=== PATIENT | male | born 1965 | race Caucasian/White ===

== ENCOUNTER 2021-11-16 22:40 | Inpatient (IN) | payer MEDICARE, SELFPAY ==
[2021-11-16 22:40] VITALS: TEMP 36.6; O2SAT 96
[2021-11-16 23:00] VITALS: O2SAT 96
--- NOTE | 2021-11-16 23:12 | W.PM.HP.N ---
Date of service: 11/16/21 Time of Service: 23:12 Assessment and Plan Assessment and plan (1) Asthma: Status: Chronic Assessment and plan: Asthma exacerbation. Unclear precipitant but non-specific infectious etiology favored at this time. By CXR (report) there does not seem to be pneumonia but will repeat film in AM (at present I am unable to open the disc sent from [facility], but report is negative). There is some concern for possible emerging sepsis picture as manifested by transient low BP and marginal elevation of lactate but at present hemodynamics stable and patient appears entirely non-toxic. Probably best to continue Abx for now but is covered for next 24 hours. Otherwise will continue steroids and updrafts. The marginal trop is noted, doubtful significance, or at most demand ischemia. Will trend out. 1. Asthma: steroids, updrafts, consider continuing abx, repeat CXR in AM 2. Elevated trop, probable demand ischemia: trend 3. CAD: continue ASA, statin, beta jane Reviewed ADs: requests Full Code History of Present Illness History of Present Illness Chief Complaint: SOB Narrative: 56 male non-smoker, h/o asthma. 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 Returns to [facility] tonight with persistent and worsening SOB along with dry cough. States he had a fever also tonight but does not know details. Does further report a heavy feeling on chest for the past two weeks consistently (notably he has h/o CAD/ND and states this CP is what he gets with his asthma, and is different than that with coronary insufficiency)). In ER findings of note for wheezing, BPs initially low 100s, dipping into 80s-90s (single reading 57/sys), white count 11K, trop marginal at 0.03 (ULN 0.02); lactate 2.0 (ULN 1.9), EKG no ischemic changes with RBBB; negative CXR. COVID negative. Patient given IVF, steroids, updrafts, Rocephin and Zithromax. No beds available and he was accepted in transfer here. Patient states he feels much improved, though not back to baseline. Denies CP at this time. Review of Systems All systems reviewed & are unremarkable except as noted in HPI and below PFSH All Active Problems (Updated 11/16/21 @ 23:28 by Jhonatan Jarquin MD) Asthma (Chronic) Social History Smoking risk assessment performed?: No Meds Allergies and Home Medications Home Medications Medication Instructions Recorded Confirmed Type albuterol 90 mcg INHALATION PRN PRN 11/16/21 11/16/21 History aspirin 81 mg PO DAILY 11/16/21 11/16/21 History atorvastatin 40 mg PO QHS 11/16/21 11/16/21 History ferrous sulfate 325 mg PO DAILY 11/16/21 11/16/21 History lisinopril 10 mg PO HS 11/16/21 11/16/21 History metoprolol tartrate 12.5 mg PO BID 11/16/21 11/16/21 History omeprazole 20 mg PO HS 11/16/21 11/16/21 History oxycodone 5 mg PO BID PRN 11/16/21 11/16/21 History ropinirole 0.375 mg PO QHS 11/16/21 11/16/21 History Exam Narrative Exam Narrative: 110/79, 86, 36.6, 16, 96% 4L. HEENT atraumatic; neck supple; lungs coarse wheez; heart RRR; abdomen soft and NT; extremities w/o edema; neuro Ox3, lucid, moves all 4s
[2021-11-16 23:27] VITALS: BP 110/79; PULSE 85; PULSE 90; RESP 19; O2SAT 95
[2021-11-16 23:31] VITALS: BP 109/71; PULSE 82; PULSE 84; RESP 22; O2SAT 94
[2021-11-16 23:46] VITALS: BP 116/71; PULSE 81; PULSE 85; RESP 18; O2SAT 93
[2021-11-17] VITALS (33 sets, daily range): BP systolic 94–127; BP diastolic 58–84; PULSE 67–93; RESP 11–23; TEMP 36.1–37; O2SAT 92–98
[2021-11-17] MEDS: rOPINIRole 0.5 MG TAB 0.25 MG PO ×3 (00:47→19:42)
[2021-11-17] MEDS: Albuterol/Ipratropium 3 ML UPD VIAL UPD ×2 (00:47→06:59)
[2021-11-17] MEDS: Atorvastatin 40 MG TAB PO ×2 (00:47→23:07)
[2021-11-17] MEDS: methylPREDNISolone SUCC 40 MG VIAL IVP ×2 (00:47→08:15)
[2021-11-17] MEDS: Lactated Ringers 1,000 ML 75 ML IV (00:48)
[2021-11-17] MEDS: Normal Saline Flush 10 ML SYR ×3 (00:48→08:48)
[2021-11-17] MEDS: Insulin Aspart 300 UNITS/3 ML PEN SC ×4 (01:03→17:08)
--- NOTE | 2021-11-17 02:54 | NUR.NOTE ---
Nursing Note: Pt states he is usually good at retaining information that is provided to him verbally, but that he does not read very well r/t limited schooling.
--- NOTE | 2021-11-17 07:00 | DI.RAD_ITS ---
Exam(s) XR PORTABLE CHEST AP EXAM: XR PORTABLE CHEST AP CLINICAL HISTORY: SOB TECHNIQUE: 2D digital imaging was performed. COMPARISON: CR Chest 1 View Portable from 11/16/2021 [facility]. FINDINGS: LUNGS: Clear. No pleural abnormality seen. HEART: Enlarged. Status post CABG. BONES: Unremarkable. IMPRESSION: Cardiomegaly. No acute pulmonary findings. DATA REPOSITORY: RADIATION DOSE DELIVERED:
--- NOTE | 2021-11-17 07:13 | DI.VRAD_ITS ---
PROCEDURE INFORMATION: Exam: XR Chest Exam date and time: 11/17/2021 12:00 AM Age: 56 years old Clinical indication: Shortness of breath TECHNIQUE: Imaging protocol: XR of the chest. Views: 1 view. COMPARISON: CR Chest 1 View Portable 11/16/2021 6:40 PM FINDINGS: Lungs: Unremarkable. No consolidation. Pleural spaces: Unremarkable. No pleural effusion. No pneumothorax. Heart/Mediastinum: Unremarkable. No cardiomegaly. Bones/joints: Unremarkable. IMPRESSION: No acute findings. Dictated and Authenticated by: Jasmeet Medley MD. Ordering:ARINA Israel MD
[2021-11-17 07:15] LABS: Troponin I < 50 ng/L (<or=60)
[2021-11-17 08:03] LABS: HCT 42.3 % (40.0-50.0); HGB 13.9 g/dL (13.5-17.5); MCH 30.1 pg (27.0-33.0); MCHC 32.9 % (32.0-36.0); MCV 91.6 fL (80-95); MPV 12.4 fL (8.0-11.0); Nucleated RBC 0 %; Platelet Count 160 10^3/uL (130-400); RBC 4.62 10^6/uL (4.36-5.78); RDW-SD 39.8 fL; WBC 23.57 10^3/uL (4.4-10.8)
--- NOTE | 2021-11-17 08:09 | PDOC.CMIN ---
- If Service Date Differs Date of service: 11/17/21 Time of Service: 08:09 Care Management Initial Assess REASON FOR HOSPITALIZATION:: Direct admit from [facility] PAST MEDICAL HISTORY/PAST SURGICAL HISTORY:: Asthma. 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 Returns to [facility] tonight with persistent and worsening SOB along with dry cough. States he had a fever also tonight but does not know details. Does further report a heavy feeling on chest for the past two weeks consistently (notably he has h/o CAD/PA and states this CP is what he gets with his asthma, and is different than that with coronary insufficiency)). In ER findings of note for wheezing, BPs initially low 100s, dipping into 80s-90s (single reading 57/sys), white count 11K, trop marginal at 0.03 (ULN 0.02); lactate 2.0 (ULN 1.9), EKG no ischemic changes with RBBB; negative CXR. COVID negative. PREVIOUS FUNCTIONAL STATUS/SOCIAL/FAMILY SUPPORTS:: Chava is independent at baseline, he resides in [place], [place]. CURRENT FUNCTIONAL STATUS:: Chava transitioned to M/S floor today, MD reports adjusting medications and trending troponin. CM continues to follow. ADVANCE DIRECTIVES:: None on file at [facility]. Has patient been provided with info about the portal/API?: No Did the patient sign up for the portal?: No CODE STATUS:: Full Code INSURANCE COVERAGE / FINANCIAL ISSUES:: Medicare CURRENT HOME/COMMUNITY SERVICES/EQUIPMENT:: None, currently. PRIMARY CARE PHYSICIAN:: None, local. POTENTIAL DISCHARGE NEEDS:: Follow up appointments. PATIENT/FAMILY EDUCATION NEEDS:: Review discharge instructions, discuss Ask Me Three. ANTICIPATED BARRIERS TO DISCHARGE:: None identified. TRANSPORTATION:: Via private vehicle with brotherVladimir. PLAN:: Chava will return home when ready per MD. He will transport via private vehicle with family, follow up with his PCP and plan of care as prescribed.
[2021-11-17] MEDS: Ferrous Sulfate 325 MG TAB PO (08:15)
[2021-11-17] MEDS: Albuterol 2.5 MG/3 ML INH SOLN VIAL UPD (08:15)
[2021-11-17] MEDS: Aspirin 81 MG CHEW PO (08:15)
[2021-11-17] MEDS: Metoprolol 12.5 MG TAB PO ×2 (08:15→19:42)
[2021-11-17 08:19] LABS: ALT 116 U/L (16-63); AST 38 U/L (15-37); Albumin 2.9 g/dL (3.4-5.0); Alkaline Phosphatase 49 U/L (46-116); Anion Gap 14.4 mmol/L (3-11); BUN 16 mg/dL (7-18); Bilirubin, Total 0.6 mg/dL (0.2-1.0); C-Reactive Protein 8.77 mg/dL (0.0-0.3); CO2 21.6 mmol/L (21.0-32.0); CREATININE 1.2 mg/dL (0.70-1.30); Calcium 8.4 mg/dL (8.5-10.1); Chloride 108 mmol/L (98-107); Glucose 260 mg/dL (74-106); NT-proBNP 1570 pg/mL (<300); Potassium 3.7 mmol/L (3.5-5.1); Sodium 144 mmol/L (136-145); Total Protein 6.7 g/dL (6.4-8.2)
[2021-11-17 08:36] LABS: Absolute Lymphocyte Count 1.65 10^3/uL (1.2-3.4); Absolute Monocyte Count 0.24 10^3/uL (0.1-0.8); Absolute Neutrophil Count 21.68 10^3/uL (1.2-6.7); Atypical Lymphocytes % 2; Bands % 7; Diff Comment Manual Differential; RBC Morphology Normal
[2021-11-17 08:43] LABS: Procalcitonin 20.5 ng/mL
[2021-11-17] MEDS: oxyCODONE 5 MG TAB PO ×2 (08:45→15:55)
[2021-11-17] MEDS: Budesonide/Formoterol 160/4.5 6 GM 60 PUFF INH IH ×2 (08:47→19:42)
--- NOTE | 2021-11-17 09:30 | PUCC_ITS ---
General Date of Service Date of service: 11/17/21 Time of Service: 07:30 Reason for Admission to ICU: Asthma Exacerbation Assessment and Plan Assessment and plan (1) Asthma exacerbation: Status: Acute (2) Hyperglycemia: Status: Acute (3) Leukocytosis: Status: Acute (4) Lactic acidosis: Status: Acute (5) Respiratory failure with hypoxia: Status: Acute Assessment and plan: This is a 56 yo man with asthma, DAYDAY on CPAP and HTN who is admitted for an asthma exacerbation. He has never had an exacerbation in the past and typically has only required albuterol prn. He was started on methypred, oxygen and Duonebs and admitted to the ICU. He is feeling better and his lungs are clear today. He is a never smoking and still requiring 4L NC. I will start him on maintenance therapy for his asthma and plan a follow up visit for him with me to further assess his asthma and prevent recurrence of the need for hospitalization. Recommendations Pulmonary: Asthma Exacerbation - QID albuterol neb - q2hr prn albuterol HFA - start Symbicort 160 2 puff bid - rinsing mouth after use - safe for transfer out of the ICU to med/surg - stop IV methylpred - start prednisone 40mg daily for 7 days, then 30mg for 4 days, 20mg for 3 days, 10mg for 3 days, 5 mg for 3 days - I will arrange a 1 month follow up with me Hypoxic respiratory failure - continue supplemental O2 for sats >92% - he had a chest CTPE done at [facility] - I will work on having this pushed to our system for assessment - Acapella and IS - OOB to chair as able Cardiac: h/o HTN - continue home regimen if BP allows Renal: Lactic acidosis - I suspect this to be due to both albuterol as well as respiratory distress previously - will repeat - discontinued IVF I&O: Intake & Output 11/14/21 11/15/21 11/16/21 11/17/21 23:59 23:59 23:59 23:59 Intake Total 562.5 / 562.5 Output Total 700 / 700 Balance -137.5 / -137.5 Weight 118.2 kg 118.4 kg Daily Fluid Goal:: Even GI Nutrition: OK for PO diet - may need anti-emetic if still havign some nausea Date of Last Bowel Movement: 11/16/21 Infectious Disease: Pneumonia - very elevated procalcitonin, no clear large infiltrate on CXR but he clinically seems to have a respiratory infection. - had a chest CT at [facility] which we will have pushed here. - agree with continuing azithromycin and ceftriaxone for now - will get legionella and strep pneumo urine antigens - will get sputum culture - will get UA to rule out another source of infection Hematologic: Leukocytosis - 2/2 infectious process and reactive from respiratory distress Neurologic: No acute concerns Endocrine: Hyperglycemia - recommend HbA1C - recommend sliding scale to cover for now Lines: PIV Prophylaxis: on home PPI, was not on DVT ppx - I started him on Lovenox Code Status: Resuscitation Status Full Code Subjective Critical and life-threatening events over the past 24 hours: This is a 56 yo man with a history of asthma, DAYDAY on CPAP, HTN, GERD and obesity who presented to [facility] for shortness of breath. He has been feeling unwell for 2 weeks with trouble breathing, nausea and diarrhea. He was concerned about COVID so went to the ER and was tested. He was given and inhaler and sent home as his oxygen was fine and he was COVID negative. He did not improve and actually worsened and represented for shortness of breath. He was found to be hypoxic with borderline blood pressures, again COVID negative but in an asthma exacerbation with diffuse wheezing. He was transferred to [facility] for further care. He is feeling better with oxygen and nebulizers. He was first diagnosed with asthma at 27 and has only needed albuterol prn for this. He has never had an exacerbation in the past. He does not have allergies and even when he has had colds he has not had exacerbations in the past. He is drinking and has an appetite. Exam Const General: no acute distress Nutritional Appearance: well nourished [facility] Head: normocephalic Ears: external ears normal and no periauricular adenopathy General nose exam: nasal mucous membranes and turbinates normal Face and sinus: sinuses nontender Mouth: oropharynx normal and moist mucous membranes Teeth and gingiva: dentition normal Eyes General: appearance normal, both eyes and all related structures Pupils: PERRL Neck Neck: normal visual inspection and no lymphadenopathy Chest Chest: normal inspection of the chest Resp Effort & Inspection: normal respiratory effort Auscultation: clear to auscultation bilaterally, no rales, no rhonchi and no wheezes Cardio Rate: regular rate Rhythm: regular rhythm Heart Sounds: S1 normal, S2 normal and no murmurs Pulses: radial pulses present bilaterally GI Inspection: normal to inspection Palpation: soft Skin General skin exam: no rashes or lesions noted Neuro General: patient alert, patient awake and patient oriented x3 Extrem General: no clubbing, cyanosis or edema Psych Mental Status: mental status grossly normal Affect: normal affect Attitude: cooperative Most Recent VS/Results Last Vital Signs Temp 36.2 C L 11/17/21 04:00 Pulse 75 11/17/21 06:00 Resp 20 11/17/21 06:00 BP 102/66 11/17/21 06:00 Pulse Ox 94 11/17/21 06:00 Laboratory Results - last 24 hr 11/17/21 11/17/21 11/17/21 06:40 06:40 06:40 WBC RBC Hgb Hct MCV MCH MCHC RDW Plt Count MPV Immature Gran % Neutrophils % Band Neutrophils % Lymphocytes % Atypical Lymphs % Monocytes % Eosinophils % Basophils % Nucleated RBC % Absolute Neutrophils Absolute Lymphocytes Absolute Monocytes Absolute Eosinophils Absolute Basophils RBC Morphology VBG Lactate 3.0 H* Sodium 144 Potassium 3.7 Chloride 108 H Carbon Dioxide 21.6 Anion Gap 14.4 H BUN 16 Creatinine 1.2 Estimated GFR/1.73 m2 >= 60.00 Glucose 260 H Calcium 8.4 L Total Bilirubin 0.6 AST 38 H ALT 116 H Alkaline Phosphatase 49 Troponin I < 50 C-Reactive Protein 8.77 H NT-Pro-B Natriuret Pep 1570 H Total Protein 6.7 Albumin 2.9 L Procalcitonin 11/17/21 11/17/21 06:40 06:40 WBC 23.57 H RBC 4.62 Hgb 13.9 Hct 42.3 MCV 91.6 MCH 30.1 MCHC 32.9 RDW 12.0 Plt Count 160 MPV 12.4 H Immature Gran % 0.0 Neutrophils % 85.0 Band Neutrophils % 7 Lymphocytes % 5.0 Atypical Lymphs % 2 Monocytes % 1.0 Eosinophils % 0.0 Basophils % 0.0 Nucleated RBC % 0 Absolute Neutrophils 21.68 H Absolute Lymphocytes 1.65 Absolute Monocytes 0.24 Absolute Eosinophils 0.00 Absolute Basophils 0.00 RBC Morphology Normal VBG Lactate Sodium Potassium Chloride Carbon Dioxide Anion Gap BUN Creatinine Estimated GFR/1.73 m2 Glucose Calcium Total Bilirubin AST ALT Alkaline Phosphatase Troponin I C-Reactive Protein NT-Pro-B Natriuret Pep Total Protein Albumin Procalcitonin 20.5 Review of Systems All systems reviewed & are unremarkable except as noted in HPI and below Time spent with patient Time spent in Critical Care: 45 Time spent in Critical care included: Coordination of care, Chart review, Documenting critically ill care, Time at immediate bedside and Discussing critically ill care with other medical staff
--- NOTE | 2021-11-17 10:44 | NUR.NOTE ---
Pulmonology called and said that they had a follow up appointment for Chava on dec 23, 2021 at 1400. appointment card made and put in patients chart and should be given to patient with discharge packet. Nursing Note:
--- NOTE | 2021-11-17 11:13 | PGE_ITS ---
Date of Service Date of service: 11/17/21 Time of Service: 11:13 Assessment and Plan Assessment and plan (1) Asthma exacerbation: Status: Acute Assessment and plan: Continue Symbicort which was started by the classification officer. Continue prednisone 40 mg daily.Continue scheduled DuoNeb updrafts along with as needed albuterol. Continue Zithromax but switch from IV to p.o. and continue ceftriaxone. Will attempt to get a sputum for culture as well as for mycoplasma study. Check urine strep antigen. Patient can be transferred out of medical ICU to the medical/surgical floor. Qualifiers: Asthma severity: severe Asthma persistence: persistent Qualified Code(s): J45.51 - Severe persistent asthma with (acute) exacerbation (2) Respiratory failure with hypoxia: Status: Acute Assessment and plan: As above. Continue supportive care with oxygen per nasal cannula. Encourage him to get up out of bed and use I-S and Acapella. (3) Lactic acidosis: Status: Acute Assessment and plan: Secondary to albuterol and stress from hypoxemia troponin level was negative. EKG reportedly showed no acute changes. (4) Hyperglycemia: Status: Acute Assessment and plan: Monitor blood sugars before meals and at bedtime and cover with insulin NovoLog per sensitive scale. Check glycohemoglobin A1c. Subjective Subjective Interval history since last seen: 56-year-old male with a history of asthma, DAYDAY on CPAP, hypertension admitted with acute asthma exacerbation. Patient was transferred from [facility] in [facility] last night. Patient had been to their ED department about a week ago when he started with the symptoms after being exposed to his grandson who had a cold-like symptoms. Both he and his grandson have been tested for COVID-19 and have been found to be negative. Patient's been coughing up some purulent sputum and has had low-grade fevers at home along with cough and shortness of breath. He is feeling markedly better today he was started on IV steroids and aerosolized bronchodilators. He was seen this morning by the classification officer who started him on Symbicort 162 puffs twice daily and change his methylprednisolone to prednisone and is recommending a taper beginning at prednisone 40 mg daily for 7 days and then decreasing by 10 mg/day every 3 to 4 days. Patient had an evaluation at [facility] including a CTA of his chest to rule out PE. Patient did have an elevated blood lactose that was felt to be secondary to repeated albuterol treatments. He is currently on 4 L/min per nasal cannula. His O2 saturation is 94%. He has no chest pain. He had a cardiac work-up recently which he completed an echocardiogram and stress MPI about 3 weeks ago and says he just got a text today saying everything looked good. We will try to get records from [facility] Exam Narrative Exam Narrative: Morbidly obese male lying in bed with a harsh nonproductive cough. He is alert and oriented person place time circumstance. Neck is obese short no overt JVD normal carotid pulses Lungs with diffuse expiratory wheezes in all day Heart is regular rate and rhythm Abdomen is obese soft and nontender Legs without peripheral edema. Left leg is sensitive to touch secondary to previous saphenous vein graft harvesting for his coronary bypass Objective Last Vital Signs Temp 36.2 C L 11/17/21 04:00 Pulse 75 11/17/21 06:00 Resp 20 11/17/21 06:00 BP 102/66 11/17/21 06:00 Pulse Ox 94 11/17/21 06:00 Laboratory Results - last 24 hr 11/17/21 11/17/21 11/17/21 06:40 06:40 06:40 WBC RBC Hgb Hct MCV MCH MCHC RDW Plt Count MPV Immature Gran % Neutrophils % Band Neutrophils % Lymphocytes % Atypical Lymphs % Monocytes % Eosinophils % Basophils % Nucleated RBC % Absolute Neutrophils Absolute Lymphocytes Absolute Monocytes Absolute Eosinophils Absolute Basophils RBC Morphology VBG Lactate 3.0 H* Sodium 144 Potassium 3.7 Chloride 108 H Carbon Dioxide 21.6 Anion Gap 14.4 H BUN 16 Creatinine 1.2 Estimated GFR/1.73 m2 >= 60.00 Glucose 260 H Calcium 8.4 L Total Bilirubin 0.6 AST 38 H ALT 116 H Alkaline Phosphatase 49 Troponin I < 50 C-Reactive Protein 8.77 H NT-Pro-B Natriuret Pep 1570 H Total Protein 6.7 Albumin 2.9 L Procalcitonin 11/17/21 11/17/21 06:40 06:40 WBC 23.57 H RBC 4.62 Hgb 13.9 Hct 42.3 MCV 91.6 MCH 30.1 MCHC 32.9 RDW 12.0 Plt Count 160 MPV 12.4 H Immature Gran % 0.0 Neutrophils % 85.0 Band Neutrophils % 7 Lymphocytes % 5.0 Atypical Lymphs % 2 Monocytes % 1.0 Eosinophils % 0.0 Basophils % 0.0 Nucleated RBC % 0 Absolute Neutrophils 21.68 H Absolute Lymphocytes 1.65 Absolute Monocytes 0.24 Absolute Eosinophils 0.00 Absolute Basophils 0.00 RBC Morphology Normal VBG Lactate Sodium Potassium Chloride Carbon Dioxide Anion Gap BUN Creatinine Estimated GFR/1.73 m2 Glucose Calcium Total Bilirubin AST ALT Alkaline Phosphatase Troponin I C-Reactive Protein NT-Pro-B Natriuret Pep Total Protein Albumin Procalcitonin 20.5 Reviewed Pertinent PMH: Yes
[2021-11-17 12:00] LABS: Hemoglobin A1C 6.8 % (<5.7)
[2021-11-17] MEDS: Azithromycin 250 MG TAB PO (12:03)
[2021-11-17] MEDS: Enoxaparin 40 MG/0.4 ML SYR SC ×2 (12:03→23:05)
--- NOTE | 2021-11-17 13:45 | RT.EKG_ITS ---
APPROVED REPORT Exam: Resting ECG Reason for Exam: VT Patient Location: I HR:71 bpm ECG Measurements Heart Rate 71 AXIS DC 145 P 29 QRSd 132 QRS -51 QT 423 T 128 QTc 460 Conclusion Sinus rhythm...normal P axis, V-rate 60- 99 Probable left atrial enlargement...P >50mS, <-0.10mV V1 Abnormal T, consider ischemia, lateral leads...T <-0.20mV, I aVL V5 V6 ST elevation, consider inferior injury...ST >0.08mV, II III aVF
[2021-11-17 14:19] LABS: Lactate 3.1 mmol/L (0.6-1.4)
--- NOTE | 2021-11-17 14:27 | NUR.NOTE ---
I, Saige Rachel L.P.N. received report from Lisandra Cobian R.N. at 1330 from ICU. Pt is transferred from ICU to MED/Surg via wheelchair. He is in his room at this time with his spouse. Nursing Note:
--- NOTE | 2021-11-17 14:28 | PHA.REVIEW ---
Pharmacy Admission Review - Admission Clinical Review (Last Updated 11/17/21 @ 09:41 by Jenna Arias MD) Respiratory failure with hypoxia (Acute) Lactic acidosis (Acute) Leukocytosis (Acute) Hyperglycemia (Acute) Asthma exacerbation (Acute) bee venom protein (honey bee) Allergy (Severe, Unverified 11/17/21 00:31) Anaphylaxis ketorolac Adverse Reaction (Unverified 11/17/21 00:31) Other (See Comment) temazepam Adverse Reaction (Unverified 11/17/21 00:31) Headache Resuscitation Status Full Code Height 5 ft 6 in Weight 118.4 kg - Renal Dosing Renal Dosing: BUN 16 mg/dL (7-18) 11/17/21 06:40 Creatinine 1.2 mg/dL (0.70-1.30) 11/17/21 06:40 Medications needing adjustments: Reviewed (Crcl ~85.2 mL/min using adjusted body weight, current meds okay) - Anticoagulation Anticoagulation: Hgb 13.9 g/dL (13.5-17.5) 11/17/21 06:40 Hct 42.3 % (40.0-50.0) 11/17/21 06:40 Plt Count 160 10^3/uL (130-400) 11/17/21 06:40 Creatinine 1.2 mg/dL (0.70-1.30) 11/17/21 06:40 DVT Prophylaxis: Intervened Medications: Enoxaparin (enoxaparin ordered 40 mg daily, but should be BID for prophylactic dosing based on pt's BMI, will mention to provider.) Therapeutic Anticoagulation: N/A - Opiate Usage Evaluate Pain Scale/Pains Meds: Intervened Scheduled Bowel Reg ordered if on Opiates?: No (will mention to provider) - Relevant Labs Sodium 144 mmol/L (136-145) 11/17/21 06:40 Potassium 3.7 mmol/L (3.5-5.1) 11/17/21 06:40 Chloride 108 mmol/L (98-107) H 11/17/21 06:40 C-Reactive Protein 8.77 mg/dL (0.0-0.3) H 11/17/21 06:40 Electrolytes, C-Reactive P, ESR: Reviewed - DM Control DM Control: Glucose 260 mg/dL (74-106) H 11/17/21 06:40 Hemoglobin A1c 6.8 % (<5.7) H 11/17/21 06:40 Finger Stick Blood Glucose 228 Finger Stick Blood Glucose 228 Finger Stick Blood Glucose 228 Finger Stick Blood Glucose 241 Finger Stick Blood Glucose 241 Insulin Dosing: Reviewed (Sliding scale aspart ordered.) - Heart Failure/MA Heart Failure/MA: Troponin I < 50 ng/L (<or=60) 11/17/21 06:40 NT-Pro-B Natriuret Pep 1570 pg/mL (<300) H 11/17/21 06:40 EF%, DINA's, B-Blockers, Diuretics: Reviewed - BP Control BP Control: Blood Pressure [Right Arm] 120/67 Blood Pressure [Right Arm] 112/68 Blood Pressure 107/66 Blood Pressure 120/67 Blood Pressure 125/78 Blood Pressure 94/65 Blood Pressure 112/68 Blood Pressure 111/71 Blood Pressure 102/66 Blood Pressure 106/70 If elevated: Reviewed (Within normal limits most of admission so far with a couple of lows.) - Qtc Review If Elevated: N/A (QTc 460 on admission) - IV to PO Switch IV Medications: Reviewed - Home Meds Home Med List reviewed: Reviewed Relevent Home Meds Not ordered & why?: albuterol (has levalbuterol ordered) - Current meds Current Medication Order Review: Intervened (Changed ceftriaxone from admix to premix as premix bags are available, discontinued duplicate med orders.) - Comments Comments/Follow Ups: Watch BP, BP, SCr, labs, for culture results and for med changes. Antibiotic Activity - Pharmacy Antibiotic Review Pharmacy Antibiotic Activity: IV to PO (Ceftriaxone continues (day 2 as a dose was given on the 2nd at [facility] prior to transfer here per nursing), azithromycin changed to PO. Sputum culture pending.)
[2021-11-17 14:35] LABS: Troponin I < 50 ng/L (<or=60)
--- NOTE | 2021-11-17 15:06 | DI.CT_ITS ---
Exam(s) CT CHEST PE CTA EXAM: CT CHEST PE CTA CLINICAL HISTORY: dyspnea, cough, hypoxemia. TECHNIQUE: Imaging Protocol: Axial CT angiography was performed with multi-slice acquisition and mu lti-planar and/or 3D reconstructions. CONTRAST MATERIAL: Intravenous: Omnipaque 350 Contrast volume:100 ml COMPARISON: CR,XR XR PORTABLE CHEST AP from 11/17/2021 FINDINGS: Pulmonary Arteries: No evidence of filling defect to suggest pulmonary emboli. Tracheobronchial tree: Patent where visualized. Mediastinum and Felecia: No dominant adenopathy or fluid collection. Pulmonary parenchyma: Evaluation limited due to respiratory motion and expiratory changes. Focal are a of consolidation posteriorly in the left lower lobe. Pleura: No effusion or pneumothorax. Heart: Heart is dilated. Prior CABG. Coronary artery calcifications. Aorta: Thoracic aorta non-dilated. No aneurysm. No dissection. Upper abdomen: Enlarged fatty liver. Bones: Sternal wires. Prominent spurring osteophytes in the thoracic spine. IMPRESSION: No evidence of pulmonary embolism. Area of pulmonary consolidation posterior left lower lobe. RADIATION DOSE DELIVERED: 617.64mGy.cm Total DLP DATA REPOSITORY: All CT scans at this facility are submitted to the National Radiology Data Registry (NRDR) Dose Index Registry (DIR) with the [employer] (ACR). RADIATION OPTIMIZATION: All CT scans at this facility use at least one of these dose optimization te chniques: automated exposure control; mA and/or kV adjustment per patient size (includes targeted exa ms where dose is matched to clinical indication); or iterative reconstruction.
[2021-11-17] MEDS: Omnipaque 350 MG/ML 100 ML BTL IJ (15:19)
[2021-11-17 18:20] LABS: Troponin I < 50 ng/L (<or=60)
[2021-11-17] MEDS: cefTRIAXone 1 GM/50 ML BAG IVPB (19:42)
[2021-11-17] MEDS: Lisinopril 10 MG TAB PO (23:06)
[2021-11-17] MEDS: Omeprazole 20 MG CAPCR PO (23:06)
[2021-11-18] MEDS: rOPINIRole 0.5 MG TAB 0.25 MG PO ×2 (06:09→17:11)
[2021-11-18] MEDS: Metoprolol 12.5 MG TAB PO ×2 (06:09→17:12)
[2021-11-18] MEDS: Budesonide/Formoterol 160/4.5 6 GM 60 PUFF INH IH ×2 (06:10→17:13)
[2021-11-18 07:07] LABS: Abs Immature Grans 0.18 10^3/uL (0.0-0.06); Absolute Monocyte Count 1.25 10^3/uL (0.1-0.8); Basophils % 0.1; HCT 43.8 % (40.0-50.0); HGB 14.3 g/dL (13.5-17.5); Immature Grans % 0.9; Lymphocytes % 17.1; MCHC 32.6 % (32.0-36.0); MCV 91.8 fL (80-95); Neutrophils % 75.9; Nucleated RBC 0 %; Platelet Count 179 10^3/uL (130-400); RBC 4.77 10^6/uL (4.36-5.78); RDW 12.2 % (11.8-14.1); RDW-SD 41.3 fL; WBC 20.88 10^3/uL (4.4-10.8)
--- NOTE | 2021-11-18 07:14 | PGE_ITS ---
Assessment and Plan Assessment and plan (1) Asthma exacerbation: Status: Acute Qualifiers: Asthma severity: severe Asthma persistence: persistent Qualified Code(s): J45.51 - Severe persistent asthma with (acute) exacerbation (2) Hyperglycemia: Status: Acute (3) Leukocytosis: Status: Acute (4) Lactic acidosis: Status: Acute (5) Pneumonia: Status: Acute (6) Respiratory failure with hypoxia: Status: Acute Assessment and plan: This is a 56 yo man with asthma, DAYDAY on CPAP and HTN who is admitted for an asthma exacerbation. He has never had an exacerbation in the past and typically has only required albuterol prn. He was initially admitted to the ICU but was able to be transferred to med/surg yesterday given stability. His chest CT was significant for a LLL pneumonia. He is already on CAP coverage and has a sputum culture just showing normal oral krystla. He has urine antigen tests pending. It is likely that he began to have the infection 2 weeks ago when he started feeling ill and it progressed enough to cause an asthma exacerbation. The nausea and vomiting makes a Legionella species pneum onia a possibility, though his sodium is normal. He is improving with treatment and has cut his O2 needs in half since yesterday. Hypoxic respiratory failure - due to asthma and PNA - continue supplemental O2 for sat >92% - will need ambulatory pulse ox prior to discharge - I am hopeful he will not need oxygen on discharge as he has a treatable and reversible condition and has already made significant improvements Community acquired pneumonia - continue ceftriaxone and azithromycin - sputum culture - normal oral krystal - urine antigens for S. pneumo and Legionella are pending Asthma exacerbation - continue prednisone 40mg daily for 7 days, then 30mg for 4 days, 20mg for 3 days, 10mg for 3 days, 5 mg for 3 days - continue Symbicort 160 2 puffs bid - he has follow up with me arranged DAYDAY - using home CPAP unit (not recalled) and home settings overnight General Date Of Service Date of service: 11/18/21 Time of Service: 07:30 Reason for Consult: Asthma exacerbation, Pneumonia Subjective Note Note: Chava is doing well today. Although he has been peeing he did not have the UA or urine antigens sent to the lab. He is on 2L NC today, which is improved from 4L. His chest CT yesterday did not show a PE was did find a posterior LLL pneumonia. He is on ceftriaxone and azithromycin. He is using the Acapella and IS and is coughing up sputum. His home CPAP machine was brought in for sure overnight (no a recalled unit), which he did ok with overnight. Exam Const General: no acute distress Nutritional Appearance: well nourished [facility] Head: normocephalic Ears: external ears normal and no periauricular adenopathy General nose exam: nasal mucous membranes and turbinates normal Face and sinus: sinuses nontender Mouth: oropharynx normal and moist mucous membranes Teeth and gingiva: dentition normal Eyes General: appearance normal, both eyes and all related structures Pupils: PERRL Neck Neck: normal visual inspection and no lymphadenopathy Chest Chest: normal inspection of the chest Resp Effort & Inspection: normal respiratory effort Auscultation: clear to auscultation bilaterally, no rales, no rhonchi and no wheezes Cardio Rate: regular rate Rhythm: regular rhythm Heart Sounds: S1 normal, S2 normal and no murmurs Pulses: radial pulses present bilaterally GI Inspection: normal to inspection Palpation: soft Skin General skin exam: no rashes or lesions noted Neuro General: patient alert, patient awake and patient oriented x3 Extrem General: no clubbing, cyanosis or edema Psych Mental Status: mental status grossly normal Affect: normal affect Attitude: cooperative Objective Last Vital Signs Temp 36.7 C 11/17/21 23:55 Pulse 73 11/17/21 23:55 Resp 22 11/17/21 23:55 BP 127/76 11/17/21 23:55 Pulse Ox 96 11/17/21 23:55 Laboratory Results - last 24 hr 11/17/21 11/17/21 11/17/21 06:40 06:40 06:40 WBC 23.57 H RBC 4.62 Hgb 13.9 Hct 42.3 MCV 91.6 MCH 30.1 MCHC 32.9 RDW 12.0 Plt Count 160 MPV 12.4 H Immature Gran % 0.0 Neutrophils % 85.0 Band Neutrophils % 7 Lymphocytes % 5.0 Atypical Lymphs % 2 Monocytes % 1.0 Eosinophils % 0.0 Basophils % 0.0 Nucleated RBC % 0 Absolute Neutrophils 21.68 H Absolute Lymphocytes 1.65 Absolute Monocytes 0.24 Absolute Eosinophils 0.00 Absolute Basophils 0.00 RBC Morphology Normal VBG Lactate Sodium 144 Potassium 3.7 Chloride 108 H Carbon Dioxide 21.6 Anion Gap 14.4 H BUN 16 Creatinine 1.2 Estimated GFR/1.73 m2 >= 60.00 Glucose 260 H Hemoglobin A1c Calcium 8.4 L Magnesium Total Bilirubin 0.6 AST 38 H ALT 116 H Alkaline Phosphatase 49 Troponin I < 50 C-Reactive Protein 8.77 H NT-Pro-B Natriuret Pep 1570 H Total Protein 6.7 Albumin 2.9 L Procalcitonin 11/17/21 11/17/21 11/17/21 06:40 06:40 14:09 WBC RBC Hgb Hct MCV MCH MCHC RDW Plt Count MPV Immature Gran % Neutrophils % Band Neutrophils % Lymphocytes % Atypical Lymphs % Monocytes % Eosinophils % Basophils % Nucleated RBC % Absolute Neutrophils Absolute Lymphocytes Absolute Monocytes Absolute Eosinophils Absolute Basophils RBC Morphology VBG Lactate 3.1 H* Sodium Potassium Chloride Carbon Dioxide Anion Gap BUN Creatinine Estimated GFR/1.73 m2 Glucose Hemoglobin A1c 6.8 H Calcium Magnesium Total Bilirubin AST ALT Alkaline Phosphatase Troponin I C-Reactive Protein NT-Pro-B Natriuret Pep Total Protein Albumin Procalcitonin 20.5 11/17/21 11/17/21 14:09 17:59 WBC RBC Hgb Hct MCV MCH MCHC RDW Plt Count MPV Immature Gran % Neutrophils % Band Neutrophils % Lymphocytes % Atypical Lymphs % Monocytes % Eosinophils % Basophils % Nucleated RBC % Absolute Neutrophils Absolute Lymphocytes Absolute Monocytes Absolute Eosinophils Absolute Basophils RBC Morphology VBG Lactate Sodium Potassium Chloride Carbon Dioxide Anion Gap BUN Creatinine Estimated GFR/1.73 m2 Glucose Hemoglobin A1c Calcium Magnesium 2.0 Total Bilirubin AST ALT Alkaline Phosphatase Troponin I < 50 < 50 C-Reactive Protein NT-Pro-B Natriuret Pep Total Protein Albumin Procalcitonin Results Medications Medications: Active Medications Generic Name Dose Route Start Last Admin Trade Name Freq PRN Reason Stop Dose Admin Acetaminophen 650 mg 11/16/21 23:49 Acetaminophen 325 Mg Tab PO Q4H PRN PRN Aspirin 81 mg 11/17/21 08:30 11/17/21 08:15 Aspirin 81 Mg Chew PO 81 mg DAILY [facility] Administration Atorvastatin Calcium 40 mg 11/18/21 18:00 Atorvastatin 40 Mg Tab PO 1800 NOLAN Azithromycin 250 mg 11/18/21 08:30 Azithromycin 250 Mg Tab PO 11/21/21 08:29 DAILY [facility] Budesonide/Formoterol Fumarate 2 puff 11/18/21 06:00 11/18/21 06:10 Budesonide/Formoterol 160/4.5 6 Gm 60 Puff Inh IH 2 puffs 0600,1800 [facility] Administration Device 1 each 11/17/21 08:00 Inhaler, Assist Device MC DIRECTED [facility] Dextrose 0 gm 11/16/21 23:56 Glucose 40% Oral Solution 15 Gm/37.5 Gm Tube PO DIRECTED PRN Dextrose/Water 0 gm 11/16/21 23:56 Dextrose 50%-Water 25 Gm/50 Ml Syr IVP DIRECTED PRN Dimethicone/Zinc Oxide 0 gm 11/16/21 23:42 Brianna Protect Cream 142 Gm Tube TP PRN PRN Enoxaparin Sodium 40 mg 11/17/21 20:00 11/17/21 23:05 Enoxaparin 40 Mg/0.4 Ml Syr SC 40 mg Q12H [facility] Administration Ferrous Sulfate 325 mg 11/17/21 08:30 11/17/21 08:15 Ferrous Sulfate 325 Mg Tab PO 325 mg DAILY [facility] Administration Ceftriaxone Sodium/Dextrose 1 gm in 50 mls @ 100 mls/hr 11/17/21 20:00 11/17/21 21:25 Rocephin IVPB Not Given Q24H [facility] Insulin Aspart 0 units 11/17/21 08:00 11/17/21 17:08 Insulin Aspart 300 Units/3 Ml Pen SC 1 units 0800,1200,1700 [facility] Administration Protocol Levalbuterol HCl 0.63 mg 11/17/21 13:54 Levalbuterol 0.63 Mg/3 Ml Upd Vial UPD Q4H PRN PRN Lisinopril 10 mg 11/18/21 18:00 Lisinopril 10 Mg Tab PO 1800 [facility] Melatonin 3 - 6 mg 11/16/21 23:49 Melatonin 3 Mg Tab PO HS PRN Metoprolol Tartrate 12.5 mg 11/18/21 06:00 11/18/21 06:09 Metoprolol 12.5 Mg Tab PO 12.5 mg 0600,1800 [facility] Administration Omeprazole 20 mg 11/18/21 18:00 Omeprazole 20 Mg Capcr PO 1800 [facility] Oxycodone HCl 5 mg 11/17/21 09:53 11/17/21 15:55 Oxycodone 5 Mg Tab PO 5 mg BID PRN PRN Administration Prednisone 40 mg 11/18/21 08:30 Prednisone 20 Mg Tab PO DAILY [facility] Ropinirole HCl 0.25 mg 11/18/21 06:00 11/18/21 06:09 Ropinirole 0.5 Mg Tab PO 0.25 mg 0600,1800 [facility] Administration Allergies bee venom protein (honey bee) Allergy (Severe, Unverified 11/17/21 00:31) Anaphylaxis ketorolac Adverse Reaction (Unverified 11/17/21 00:31) Other (See Comment) temazepam Adverse Reaction (Unverified 11/17/21 00:31) Headache Labs Result Diagrams: 11/18/21 06:42 11/18/21 06:42 Labs: 11/17/21 12:30 Sputum Sputum Culture - Pending 11/17/21 12:30 Sputum Gram Stain - Final Laboratory Tests Range/Units 11/17/21 11/17/21 11/17/21 06:40 06:40 06:40 WBC (4.4-10.8) 10^3/uL RBC (4.36-5.78) 10^6/uL Hgb (13.5-17.5) g/dL Hct (40.0-50.0) % MCV (80-95) fL MCH (27.0-33.0) pg MCHC (32.0-36.0) % RDW (11.8-14.1) % Plt Count (130-400) 10^3/uL MPV (8.0-11.0) fL Immature Gran % Neutrophils % Band Neutrophils % Lymphocytes % Atypical Lymphs % Monocytes % Eosinophils % Basophils % Nucleated RBC % % Absolute Neutrophils (1.2-6.7) 10^3/uL Absolute Lymphocytes (1.2-3.4) 10^3/uL Absolute Monocytes (0.1-0.8) 10^3/uL Absolute Eosinophils (0.0-0.7) 10^3/uL Absolute Basophils (0.0-0.2) 10^3/uL RBC Morphology VBG Lactate (0.6-1.4) mmol/L 3.0 H* Sodium (136-145) mmol/L 144 Potassium (3.5-5.1) mmol/L 3.7 Chloride (98-107) mmol/L 108 H Carbon Dioxide (21.0-32.0) mmol/L 21.6 Anion Gap (3-11) mmol/L 14.4 H BUN (7-18) mg/dL 16 Creatinine (0.70-1.30) mg/dL 1.2 Estimated GFR/1.73 m2 (mL/min/1.73m2) >= 60.00 Glucose (74-106) mg/dL 260 H Hemoglobin A1c (<5.7) % Calcium (8.5-10.1) mg/dL 8.4 L Magnesium (1.8-2.4) mg/dL Total Bilirubin (0.2-1.0) mg/dL 0.6 AST (15-37) U/L 38 H ALT (16-63) U/L 116 H Alkaline Phosphatase (46-116) U/L 49 Troponin I (<or=60) ng/L < 50 C-Reactive Protein (0.0-0.3) mg/dL 8.77 H NT-Pro-B Natriuret Pep (<300) pg/mL 1570 H Total Protein (6.4-8.2) g/dL 6.7 Albumin (3.4-5.0) g/dL 2.9 L Procalcitonin ng/mL Range/Units 11/17/21 11/17/21 11/17/21 06:40 06:40 06:40 WBC (4.4-10.8) 10^3/uL 23.57 H RBC (4.36-5.78) 10^6/uL 4.62 Hgb (13.5-17.5) g/dL 13.9 Hct (40.0-50.0) % 42.3 MCV (80-95) fL 91.6 MCH (27.0-33.0) pg 30.1 MCHC (32.0-36.0) % 32.9 RDW (11.8-14.1) % 12.0 Plt Count (130-400) 10^3/uL 160 MPV (8.0-11.0) fL 12.4 H Immature Gran % 0.0 Neutrophils % 85.0 Band Neutrophils % 7 Lymphocytes % 5.0 Atypical Lymphs % 2 Monocytes % 1.0 Eosinophils % 0.0 Basophils % 0.0 Nucleated RBC % % 0 Absolute Neutrophils (1.2-6.7) 10^3/uL 21.68 H Absolute Lymphocytes (1.2-3.4) 10^3/uL 1.65 Absolute Monocytes (0.1-0.8) 10^3/uL 0.24 Absolute Eosinophils (0.0-0.7) 10^3/uL 0.00 Absolute Basophils (0.0-0.2) 10^3/uL 0.00 RBC Morphology Normal VBG Lactate (0.6-1.4) mmol/L Sodium (136-145) mmol/L Potassium (3.5-5.1) mmol/L Chloride (98-107) mmol/L Carbon Dioxide (21.0-32.0) mmol/L Anion Gap (3-11) mmol/L BUN (7-18) mg/dL Creatinine (0.70-1.30) mg/dL Estimated GFR/1.73 m2 (mL/min/1.73m2) Glucose (74-106) mg/dL Hemoglobin A1c (<5.7) % 6.8 H Calcium (8.5-10.1) mg/dL Magnesium (1.8-2.4) mg/dL Total Bilirubin (0.2-1.0) mg/dL AST (15-37) U/L ALT (16-63) U/L Alkaline Phosphatase (46-116) U/L Troponin I (<or=60) ng/L C-Reactive Protein (0.0-0.3) mg/dL NT-Pro-B Natriuret Pep (<300) pg/mL Total Protein (6.4-8.2) g/dL Albumin (3.4-5.0) g/dL Procalcitonin ng/mL 20.5 Range/Units 11/17/21 11/17/21 11/17/21 14:09 14:09 17:59 WBC (4.4-10.8) 10^3/uL RBC (4.36-5.78) 10^6/uL Hgb (13.5-17.5) g/dL Hct (40.0-50.0) % MCV (80-95) fL MCH (27.0-33.0) pg MCHC (32.0-36.0) % RDW (11.8-14.1) % Plt Count (130-400) 10^3/uL MPV (8.0-11.0) fL Immature Gran % Neutrophils % Band Neutrophils % Lymphocytes % Atypical Lymphs % Monocytes % Eosinophils % Basophils % Nucleated RBC % % Absolute Neutrophils (1.2-6.7) 10^3/uL Absolute Lymphocytes (1.2-3.4) 10^3/uL Absolute Monocytes (0.1-0.8) 10^3/uL Absolute Eosinophils (0.0-0.7) 10^3/uL Absolute Basophils (0.0-0.2) 10^3/uL RBC Morphology VBG Lactate (0.6-1.4) mmol/L 3.1 H* Sodium (136-145) mmol/L Potassium (3.5-5.1) mmol/L Chloride (98-107) mmol/L Carbon Dioxide (21.0-32.0) mmol/L Anion Gap (3-11) mmol/L BUN (7-18) mg/dL Creatinine (0.70-1.30) mg/dL Estimated GFR/1.73 m2 (mL/min/1.73m2) Glucose (74-106) mg/dL Hemoglobin A1c (<5.7) % Calcium (8.5-10.1) mg/dL Magnesium (1.8-2.4) mg/dL 2.0 Total Bilirubin (0.2-1.0) mg/dL AST (15-37) U/L ALT (16-63) U/L Alkaline Phosphatase (46-116) U/L Troponin I (<or=60) ng/L < 50 < 50 C-Reactive Protein (0.0-0.3) mg/dL NT-Pro-B Natriuret Pep (<300) pg/mL Total Protein (6.4-8.2) g/dL Albumin (3.4-5.0) g/dL Procalcitonin ng/mL
[2021-11-18] MEDS: oxyCODONE 5 MG TAB PO ×2 (07:17→14:33)
[2021-11-18 07:19] VITALS: BP 149/82; PULSE 66; RESP 18; TEMP 36.2; O2SAT 96
[2021-11-18 07:29] LABS: Absolute Basophil Count 0.02 10^3/uL (0.0-0.2); Absolute Lymphocyte Count 3.57 10^3/uL (1.2-3.4); Absolute Neutrophil Count 15.85 10^3/uL (1.2-6.7)
[2021-11-18 08:44] LABS: Anion Gap 7.7 mmol/L (3-11); BUN 22 mg/dL (7-18); CO2 26.3 mmol/L (21.0-32.0); CREATININE 0.9 mg/dL (0.70-1.30); Calcium 8.7 mg/dL (8.5-10.1); Chloride 109 mmol/L (98-107); Glucose 143 mg/dL (74-106); Potassium 4.3 mmol/L (3.5-5.1); Sodium 143 mmol/L (136-145)
[2021-11-18] MEDS: Enoxaparin 40 MG/0.4 ML SYR SC ×2 (08:50→20:08)
[2021-11-18] MEDS: predniSONE 20 MG TAB 40 MG PO (08:50)
[2021-11-18] MEDS: Azithromycin 250 MG TAB PO (08:50)
[2021-11-18] MEDS: Ferrous Sulfate 325 MG TAB PO (08:50)
[2021-11-18] MEDS: Aspirin 81 MG CHEW PO (08:50)
[2021-11-18 08:51] LABS: Bilirubin Negative (Negative); Blood Negative (Negative); Clarity Clear (Clear); Glucose Negative (Negative); Ketones Negative (Negative); Leukocyte Esterase Negative (Negative); Nitrite Negative (Negative)
[2021-11-18] MEDS: Insulin Aspart 300 UNITS/3 ML PEN SC ×3 (08:51→17:12)
[2021-11-18 10:08] VITALS: PULSE 68
--- NOTE | 2021-11-18 12:51 | PDOC.CMPRO ---
- If Service Date Differs Date of service: 11/18/21 Time of Service: 12:51 Care Management Progress Note S/O: Chava continues to be closely monitored and treated, he is up independently and on room air with no needs at this time. CM continues to follow. Therapeutic Specialist: He is on 2L NC today, which is improved from 4L. His chest CT yesterday did not show a PE was did find a posterior LLL pneumonia. He is on ceftriaxone and azithromycin. He is using the Acapella and IS and is coughing up sputum. His home CPAP machine was brought in which he did ok with overnight. A: 56 year old male admitted from [facility] to [facility] 11/16/21 for Asthma P: Chava will return home when ready per MD, no additional services anticipated at this time. He will transport via private vehicle with family, follow up with his PCP and plan of care as prescribed.
--- NOTE | 2021-11-18 14:14 | W.PM.PROGNOT ---
Date of Service Date of service: 11/18/21 Time of Service: 14:15 Assessment and Plan Assessment and plan (1) Asthma exacerbation: Status: Acute Assessment and plan: Continue Symbicort which was started by the financial accounting analyst. Continue prednisone 40 mg daily for total of 7 days, then taper. Continue scheduled DuoNeb updrafts along with as needed albuterol. Continue Zithromax but switch from IV to p.o. and continue ceftriaxone. Sputum with many WBCs, rare epithelial cells, rate mixed gram positive krystal; none predominant. Check urine strep antigen. Qualifiers: Asthma severity: severe Asthma persistence: persistent Qualified Code(s): J45.51 - Severe persistent asthma with (acute) exacerbation (2) Respiratory failure with hypoxia: Status: Acute Assessment and plan: He was able to maintain oxygen saturations above 92% this AM on RA. Cont to monitor. Cont I-S and Acapella. (3) Lactic acidosis: Status: Acute Assessment and plan: Secondary to albuterol and stress from hypoxemia troponin level was negative. EKG reportedly showed no acute changes. Check in AM. (4) Hyperglycemia: Status: Acute Assessment and plan: Monitor blood sugars before meals and at bedtime and cover with insulin NovoLog per sensitive scale. Check glycohemoglobin A1c. Subjective Subjective Patient reports: no new complaints, feels better, shortness of breath (Ambulating in room with minimal SOA) and afebrile; denies nausea and vomiting Exam Narrative Exam Narrative: Morbidly obese male lying in bed. Conversant, in NAD. He is alert and oriented person place time circumstance. Neck is obese short no overt JVD normal carotid pulses Lungs w/o wheezes. + faint crackles in left base. Heart is regular rate and rhythm Abdomen is obese soft and nontender Legs without peripheral edema. Left leg is sensitive to touch secondary to previous saphenous vein graft harvesting for his coronary bypass but no calf tenderness. Objective Last Vital Signs Temp 36.2 C L 11/18/21 07:19 Pulse 68 11/18/21 10:08 Resp 18 11/18/21 07:19 BP 149/82 H 11/18/21 07:19 Pulse Ox 96 11/18/21 07:19 Laboratory Results - last 24 hr 11/17/21 11/17/21 11/17/21 14:09 14:09 17:59 WBC RBC Hgb Hct MCV MCH MCHC RDW Plt Count MPV Immature Gran % Neutrophils % Lymphocytes % Monocytes % Eosinophils % Basophils % Nucleated RBC % Absolute Neutrophils Absolute Lymphocytes Absolute Monocytes Absolute Eosinophils Absolute Basophils VBG Lactate 3.1 H* Sodium Potassium Chloride Carbon Dioxide Anion Gap BUN Creatinine Estimated GFR/1.73 m2 Glucose Calcium Magnesium 2.0 Troponin I < 50 < 50 Urine Color Urine Clarity Urine pH Ur Specific [place] Urine Protein Urine Ketones Urine Blood Urine Nitrite Urine Bilirubin Urine Urobilinogen Ur Leukocyte Esterase Urine Glucose 11/18/21 11/18/21 11/18/21 06:42 06:42 08:32 WBC 20.88 H RBC 4.77 Hgb 14.3 Hct 43.8 MCV 91.8 MCH 30.0 MCHC 32.6 RDW 12.2 Plt Count 179 MPV 12.0 H Immature Gran % 0.9 Neutrophils % 75.9 Lymphocytes % 17.1 Monocytes % 6.0 Eosinophils % 0.0 Basophils % 0.1 Nucleated RBC % 0 Absolute Neutrophils 15.85 H Absolute Lymphocytes 3.57 H Absolute Monocytes 1.25 H Absolute Eosinophils 0.00 Absolute Basophils 0.02 VBG Lactate Sodium 143 Potassium 4.3 Chloride 109 H Carbon Dioxide 26.3 Anion Gap 7.7 BUN 22 H D Creatinine 0.9 Estimated GFR/1.73 m2 >= 60.00 Glucose 143 H D Calcium 8.7 Magnesium Troponin I Urine Color Yellow Urine Clarity Clear Urine pH 7.0 Ur Specific [place] 1.020 Urine Protein Negative Urine Ketones Negative Urine Blood Negative Urine Nitrite Negative Urine Bilirubin Negative Urine Urobilinogen 1.0 H Ur Leukocyte Esterase Negative Urine Glucose Negative
[2021-11-18 15:10] VITALS: PULSE 73
[2021-11-18 15:25] VITALS: BP 127/80; PULSE 68; RESP 20; TEMP 36.6; O2SAT 94
--- NOTE | 2021-11-18 17:04 | RESPIRATORY ---
RT inspected pt home CPAP unit. Resmed clean and in good working order. Mask and tubing clean and in good condition. Provided patient with sterile water for noc use. Pt independent with equipment.
[2021-11-18] MEDS: Omeprazole 20 MG CAPCR PO (17:11)
[2021-11-18] MEDS: Lisinopril 10 MG TAB PO (17:11)
[2021-11-18] MEDS: Atorvastatin 40 MG TAB PO (17:12)
[2021-11-18 19:48] LABS: Legionella Ag Detection Urine Negative (Negative)
[2021-11-18 19:59] VITALS: BP 143/76; PULSE 65; RESP 20; TEMP 36.5; O2SAT 94
[2021-11-18] MEDS: cefTRIAXone 1 GM/50 ML BAG IVPB (20:09)
[2021-11-18 23:00] VITALS: PULSE 71
[2021-11-19 00:27] VITALS: BP 144/75; PULSE 66; RESP 20; TEMP 36.6; O2SAT 94
[2021-11-19 03:38] VITALS: BP 142/75; PULSE 65; RESP 18; TEMP 36.5; O2SAT 96
[2021-11-19 05:29] VITALS: BP 123/80; PULSE 72; O2SAT 96
[2021-11-19] MEDS: rOPINIRole 0.5 MG TAB 0.25 MG PO (05:30)
[2021-11-19] MEDS: Budesonide/Formoterol 160/4.5 6 GM 60 PUFF INH IH (05:31)
[2021-11-19] MEDS: Metoprolol 12.5 MG TAB PO (05:31)
[2021-11-19 06:41] VITALS: PULSE 62
[2021-11-19 06:54] LABS: Lactate 1.5 mmol/L (0.6-1.4)
[2021-11-19 07:22] VITALS: BP 126/85; PULSE 64; RESP 18; TEMP 37.3; O2SAT 96
[2021-11-19] MEDS: Enoxaparin 40 MG/0.4 ML SYR SC (07:59)
[2021-11-19] MEDS: Aspirin 81 MG CHEW PO (07:59)
[2021-11-19] MEDS: Azithromycin 250 MG TAB PO (07:59)
[2021-11-19] MEDS: Ferrous Sulfate 325 MG TAB PO (07:59)
[2021-11-19] MEDS: predniSONE 20 MG TAB 40 MG PO (07:59)
[2021-11-19] MEDS: oxyCODONE 5 MG TAB PO (08:35)
--- NOTE | 2021-11-19 09:42 | W.PULMPROG ---
Assessment and Plan Assessment and plan (1) Asthma exacerbation: Status: Acute Qualifiers: Asthma severity: severe Asthma persistence: persistent Qualified Code(s): J45.51 - Severe persistent asthma with (acute) exacerbation (2) Hyperglycemia: Status: Acute (3) Leukocytosis: Status: Acute (4) Lactic acidosis: Status: Acute (5) Pneumonia: Status: Acute (6) Respiratory failure with hypoxia: Status: Acute Assessment and plan: This is a 56 yo man with asthma, DAYDAY on CPAP and HTN who is admitted for an asthma exacerbation. He has never had an exacerbation in the past and typically has only required albuterol prn. He was initially admitted to the ICU but was able to be transferred to med/surg yesterday given stability. His chest CT was significant for a LLL pneumonia. He is already on CAP coverage and has a sputum culture just showing normal oral krystal. He has urine antigen tests pending. It is likely that he began to have the infection 2 weeks ago when he started feeling ill and it progressed enough to cause an asthma exacerbation. His Legionella urine antigen is negative. He is improving with treatment and no longer requires oxygen. Hypoxic respiratory failure, improved - due to asthma and PNA - continue supplemental O2 for sat >92% - ambulatory pulse ox today - he is safe for discharge today in my opinion Community acquired pneumonia - can change his antibiotic coverage to Levaquin for the remainder of a 7 day course total - sputum culture - normal oral krystal - urine antigens for S. pneumo pending - Legionella urine antigen negative Asthma exacerbation - continue prednisone 40mg daily for 7 days, then 30mg for 4 days, 20mg for 3 days, 10mg for 3 days, 5 mg for 3 days - continue Symbicort 160 2 puffs bid and please prescribe this on discharge - he has follow up with me arranged DAYDAY - using home CPAP unit (not recalled) and home settings overnight General Date Of Service Date of service: 11/19/21 Time of Service: 08:10 Reason for Consult: Asthma exacerbation Pneumonia Subjective Note Note: Chava is feeling great today. He is sitting comfortable not on any supplemental oxygen. He continues to cough out sputum and feels as though it is really breaking up in his chest. He slept well. Exam Const General: no acute distress Nutritional Appearance: well nourished [facility] Head: normocephalic Ears: external ears normal and no periauricular adenopathy General nose exam: nasal mucous membranes and turbinates normal Face and sinus: sinuses nontender Mouth: oropharynx normal and moist mucous membranes Teeth and gingiva: dentition normal Eyes General: appearance normal, both eyes and all related structures Pupils: PERRL Neck Neck: normal visual inspection and no lymphadenopathy Chest Chest: normal inspection of the chest Resp Effort & Inspection: normal respiratory effort Auscultation: clear to auscultation bilaterally, no rales, no rhonchi and no wheezes Cardio Rate: regular rate Rhythm: regular rhythm Heart Sounds: S1 normal, S2 normal and no murmurs Pulses: radial pulses present bilaterally GI Inspection: normal to inspection Palpation: soft Skin General skin exam: no rashes or lesions noted Neuro General: patient alert, patient awake and patient oriented x3 Extrem General: no clubbing, cyanosis or edema Psych Mental Status: mental status grossly normal Affect: normal affect Attitude: cooperative Objective Last Vital Signs Temp 37.3 C 11/19/21 07:22 Pulse 64 11/19/21 07:22 Resp 18 11/19/21 07:22 BP 126/85 11/19/21 07:22 Pulse Ox 96 11/19/21 07:22 Laboratory Results - last 24 hr 11/18/21 11/19/21 08:32 06:50 VBG Lactate 1.5 H Urine Legionella Ag Negative Results Medications Medications: Active Medications Generic Name Dose Route Start Last Admin Trade Name Freq PRN Reason Stop Dose Admin Acetaminophen 650 mg 11/16/21 23:49 Acetaminophen 325 Mg Tab PO Q4H PRN PRN Aspirin 81 mg 11/17/21 08:30 11/19/21 07:59 Aspirin 81 Mg Chew PO 81 mg DAILY NOLAN Administration Atorvastatin Calcium 40 mg 11/18/21 18:00 11/18/21 17:12 Atorvastatin 40 Mg Tab PO 40 mg 1800 NOLAN Administration Azithromycin 250 mg 11/18/21 08:30 11/19/21 07:59 Azithromycin 250 Mg Tab PO 11/21/21 08:29 250 mg DAILY NOLAN Administration Budesonide/Formoterol Fumarate 2 puff 11/18/21 06:00 11/19/21 05:31 Budesonide/Formoterol 160/4.5 6 Gm 60 Puff Inh IH 2 puffs 0600,1800 [facility] Administration Device 1 each 11/17/21 08:00 Inhaler, Assist Device MC DIRECTED NOLAN Dextrose 0 gm 11/16/21 23:56 Glucose 40% Oral Solution 15 Gm/37.5 Gm Tube PO DIRECTED PRN Dextrose/Water 0 gm 11/16/21 23:56 Dextrose 50%-Water 25 Gm/50 Ml Syr IVP DIRECTED PRN Dimethicone/Zinc Oxide 0 gm 11/16/21 23:42 Brianna Protect Cream 142 Gm Tube TP PRN PRN Enoxaparin Sodium 40 mg 11/17/21 20:00 11/19/21 07:59 Enoxaparin 40 Mg/0.4 Ml Syr SC 40 mg Q12H NOLAN Administration Ferrous Sulfate 325 mg 11/17/21 08:30 11/19/21 07:59 Ferrous Sulfate 325 Mg Tab PO 325 mg DAILY NOLAN Administration Ceftriaxone Sodium/Dextrose 1 gm in 50 mls @ 100 mls/hr 11/17/21 20:00 11/18/21 21:00 Rocephin IVPB Infused Q24H NOLAN Infusion Insulin Aspart 0 units 11/17/21 08:00 11/19/21 07:48 Insulin Aspart 300 Units/3 Ml Pen SC Not Given 0800,1200,1700 [facility] Protocol Levalbuterol HCl 0.63 mg 11/17/21 13:54 Levalbuterol 0.63 Mg/3 Ml Upd Vial UPD Q4H PRN PRN Lisinopril 10 mg 11/18/21 18:00 11/18/21 17:11 Lisinopril 10 Mg Tab PO 10 mg 1800 NOLAN Administration Melatonin 3 - 6 mg 11/16/21 23:49 Melatonin 3 Mg Tab PO HS PRN Metoprolol Tartrate 12.5 mg 11/18/21 06:00 11/19/21 05:31 Metoprolol 12.5 Mg Tab PO 12.5 mg 0600,1800 NOLAN Administration Omeprazole 20 mg 11/18/21 18:00 11/18/21 17:11 Omeprazole 20 Mg Capcr PO 20 mg 1800 NOLAN Administration Oxycodone HCl 5 mg 11/17/21 09:53 11/19/21 08:35 Oxycodone 5 Mg Tab PO 5 mg BID PRN PRN Administration Prednisone 40 mg 11/18/21 08:30 11/19/21 07:59 Prednisone 20 Mg Tab PO 40 mg DAILY NOLAN Administration Ropinirole HCl 0.25 mg 11/18/21 06:00 11/19/21 05:30 Ropinirole 0.5 Mg Tab PO 0.25 mg 0600,1800 NOLAN Administration Allergies bee venom protein (honey bee) Allergy (Severe, Unverified 11/17/21 00:31) Anaphylaxis ketorolac Adverse Reaction (Unverified 11/17/21 00:31) Other (See Comment) temazepam Adverse Reaction (Unverified 11/17/21 00:31) Headache Labs Result Diagrams: 11/18/21 06:42 11/18/21 06:42 Labs: 11/17/21 12:30 Sputum Sputum Culture - Preliminary Normal Krystal 11/17/21 12:30 Sputum Gram Stain - Final Laboratory Tests Range/Units 11/17/21 11/17/21 11/17/21 06:40 06:40 06:40 WBC (4.4-10.8) 10^3/uL RBC (4.36-5.78) 10^6/uL Hgb (13.5-17.5) g/dL Hct (40.0-50.0) % MCV (80-95) fL MCH (27.0-33.0) pg MCHC (32.0-36.0) % RDW (11.8-14.1) % Plt Count (130-400) 10^3/uL MPV (8.0-11.0) fL Immature Gran % Neutrophils % Band Neutrophils % Lymphocytes % Atypical Lymphs % Monocytes % Eosinophils % Basophils % Nucleated RBC % % Absolute Neutrophils (1.2-6.7) 10^3/uL Absolute Lymphocytes (1.2-3.4) 10^3/uL Absolute Monocytes (0.1-0.8) 10^3/uL Absolute Eosinophils (0.0-0.7) 10^3/uL Absolute Basophils (0.0-0.2) 10^3/uL RBC Morphology VBG Lactate (0.6-1.4) mmol/L 3.0 H* Sodium (136-145) mmol/L 144 Potassium (3.5-5.1) mmol/L 3.7 Chloride (98-107) mmol/L 108 H Carbon Dioxide (21.0-32.0) mmol/L 21.6 Anion Gap (3-11) mmol/L 14.4 H BUN (7-18) mg/dL 16 Creatinine (0.70-1.30) mg/dL 1.2 Estimated GFR/1.73 m2 (mL/min/1.73m2) >= 60.00 Glucose (74-106) mg/dL 260 H Hemoglobin A1c (<5.7) % Calcium (8.5-10.1) mg/dL 8.4 L Magnesium (1.8-2.4) mg/dL Total Bilirubin (0.2-1.0) mg/dL 0.6 AST (15-37) U/L 38 H ALT (16-63) U/L 116 H Alkaline Phosphatase (46-116) U/L 49 Troponin I (<or=60) ng/L < 50 C-Reactive Protein (0.0-0.3) mg/dL 8.77 H NT-Pro-B Natriuret Pep (<300) pg/mL 1570 H Total Protein (6.4-8.2) g/dL 6.7 Albumin (3.4-5.0) g/dL 2.9 L Procalcitonin ng/mL Urine Color (Yellow) Urine Clarity (Clear) Urine pH (5-8) Ur Specific [place] (1.005-1.025) Urine Protein (Negative) mg/dL Urine Ketones (Negative) mg/dL Urine Blood (Negative) Urine Nitrite (Negative) Urine Bilirubin (Negative) Urine Urobilinogen (Up TO 0.2) EU/dL Ur Leukocyte Esterase (Negative) Urine Glucose (Negative) mg/dL Urine Legionella Ag (Negative) Range/Units 11/17/21 11/17/21 11/17/21 06:40 06:40 06:40 WBC (4.4-10.8) 10^3/uL 23.57 H RBC (4.36-5.78) 10^6/uL 4.62 Hgb (13.5-17.5) g/dL 13.9 Hct (40.0-50.0) % 42.3 MCV (80-95) fL 91.6 MCH (27.0-33.0) pg 30.1 MCHC (32.0-36.0) % 32.9 RDW (11.8-14.1) % 12.0 Plt Count (130-400) 10^3/uL 160 MPV (8.0-11.0) fL 12.4 H Immature Gran % 0.0 Neutrophils % 85.0 Band Neutrophils % 7 Lymphocytes % 5.0 Atypical Lymphs % 2 Monocytes % 1.0 Eosinophils % 0.0 Basophils % 0.0 Nucleated RBC % % 0 Absolute Neutrophils (1.2-6.7) 10^3/uL 21.68 H Absolute Lymphocytes (1.2-3.4) 10^3/uL 1.65 Absolute Monocytes (0.1-0.8) 10^3/uL 0.24 Absolute Eosinophils (0.0-0.7) 10^3/uL 0.00 Absolute Basophils (0.0-0.2) 10^3/uL 0.00 RBC Morphology Normal VBG Lactate (0.6-1.4) mmol/L Sodium (136-145) mmol/L Potassium (3.5-5.1) mmol/L Chloride (98-107) mmol/L Carbon Dioxide (21.0-32.0) mmol/L Anion Gap (3-11) mmol/L BUN (7-18) mg/dL Creatinine (0.70-1.30) mg/dL Estimated GFR/1.73 m2 (mL/min/1.73m2) Glucose (74-106) mg/dL Hemoglobin A1c (<5.7) % 6.8 H Calcium (8.5-10.1) mg/dL Magnesium (1.8-2.4) mg/dL Total Bilirubin (0.2-1.0) mg/dL AST (15-37) U/L ALT (16-63) U/L Alkaline Phosphatase (46-116) U/L Troponin I (<or=60) ng/L C-Reactive Protein (0.0-0.3) mg/dL NT-Pro-B Natriuret Pep (<300) pg/mL Total Protein (6.4-8.2) g/dL Albumin (3.4-5.0) g/dL Procalcitonin ng/mL 20.5 Urine Color (Yellow) Urine Clarity (Clear) Urine pH (5-8) Ur Specific [place] (1.005-1.025) Urine Protein (Negative) mg/dL Urine Ketones (Negative) mg/dL Urine Blood (Negative) Urine Nitrite (Negative) Urine Bilirubin (Negative) Urine Urobilinogen (Up TO 0.2) EU/dL Ur Leukocyte Esterase (Negative) Urine Glucose (Negative) mg/dL Urine Legionella Ag (Negative) Range/Units 11/17/21 11/17/21 11/17/21 14:09 14:09 17:59 WBC (4.4-10.8) 10^3/uL RBC (4.36-5.78) 10^6/uL Hgb (13.5-17.5) g/dL Hct (40.0-50.0) % MCV (80-95) fL MCH (27.0-33.0) pg MCHC (32.0-36.0) % RDW (11.8-14.1) % Plt Count (130-400) 10^3/uL MPV (8.0-11.0) fL Immature Gran % Neutrophils % Band Neutrophils % Lymphocytes % Atypical Lymphs % Monocytes % Eosinophils % Basophils % Nucleated RBC % % Absolute Neutrophils (1.2-6.7) 10^3/uL Absolute Lymphocytes (1.2-3.4) 10^3/uL Absolute Monocytes (0.1-0.8) 10^3/uL Absolute Eosinophils (0.0-0.7) 10^3/uL Absolute Basophils (0.0-0.2) 10^3/uL RBC Morphology VBG Lactate (0.6-1.4) mmol/L 3.1 H* Sodium (136-145) mmol/L Potassium (3.5-5.1) mmol/L Chloride (98-107) mmol/L Carbon Dioxide (21.0-32.0) mmol/L Anion Gap (3-11) mmol/L BUN (7-18) mg/dL Creatinine (0.70-1.30) mg/dL Estimated GFR/1.73 m2 (mL/min/1.73m2) Glucose (74-106) mg/dL Hemoglobin A1c (<5.7) % Calcium (8.5-10.1) mg/dL Magnesium (1.8-2.4) mg/dL 2.0 Total Bilirubin (0.2-1.0) mg/dL AST (15-37) U/L ALT (16-63) U/L Alkaline Phosphatase (46-116) U/L Troponin I (<or=60) ng/L < 50 < 50 C-Reactive Protein (0.0-0.3) mg/dL NT-Pro-B Natriuret Pep (<300) pg/mL Total Protein (6.4-8.2) g/dL Albumin (3.4-5.0) g/dL Procalcitonin ng/mL Urine Color (Yellow) Urine Clarity (Clear) Urine pH (5-8) Ur Specific [place] (1.005-1.025) Urine Protein (Negative) mg/dL Urine Ketones (Negative) mg/dL Urine Blood (Negative) Urine Nitrite (Negative) Urine Bilirubin (Negative) Urine Urobilinogen (Up TO 0.2) EU/dL Ur Leukocyte Esterase (Negative) Urine Glucose (Negative) mg/dL Urine Legionella Ag (Negative) Range/Units 11/18/21 11/18/21 11/18/21 06:42 06:42 08:32 WBC (4.4-10.8) 10^3/uL 20.88 H RBC (4.36-5.78) 10^6/uL 4.77 Hgb (13.5-17.5) g/dL 14.3 Hct (40.0-50.0) % 43.8 MCV (80-95) fL 91.8 MCH (27.0-33.0) pg 30.0 MCHC (32.0-36.0) % 32.6 RDW (11.8-14.1) % 12.2 Plt Count (130-400) 10^3/uL 179 MPV (8.0-11.0) fL 12.0 H Immature Gran % 0.9 Neutrophils % 75.9 Band Neutrophils % Lymphocytes % 17.1 Atypical Lymphs % Monocytes % 6.0 Eosinophils % 0.0 Basophils % 0.1 Nucleated RBC % % 0 Absolute Neutrophils (1.2-6.7) 10^3/uL 15.85 H Absolute Lymphocytes (1.2-3.4) 10^3/uL 3.57 H Absolute Monocytes (0.1-0.8) 10^3/uL 1.25 H Absolute Eosinophils (0.0-0.7) 10^3/uL 0.00 Absolute Basophils (0.0-0.2) 10^3/uL 0.02 RBC Morphology VBG Lactate (0.6-1.4) mmol/L Sodium (136-145) mmol/L 143 Potassium (3.5-5.1) mmol/L 4.3 Chloride (98-107) mmol/L 109 H Carbon Dioxide (21.0-32.0) mmol/L 26.3 Anion Gap (3-11) mmol/L 7.7 BUN (7-18) mg/dL 22 H D Creatinine (0.70-1.30) mg/dL 0.9 Estimated GFR/1.73 m2 (mL/min/1.73m2) >= 60.00 Glucose (74-106) mg/dL 143 H D Hemoglobin A1c (<5.7) % Calcium (8.5-10.1) mg/dL 8.7 Magnesium (1.8-2.4) mg/dL Total Bilirubin (0.2-1.0) mg/dL AST (15-37) U/L ALT (16-63) U/L Alkaline Phosphatase (46-116) U/L Troponin I (<or=60) ng/L C-Reactive Protein (0.0-0.3) mg/dL NT-Pro-B Natriuret Pep (<300) pg/mL Total Protein (6.4-8.2) g/dL Albumin (3.4-5.0) g/dL Procalcitonin ng/mL Urine Color (Yellow) Yellow Urine Clarity (Clear) Clear Urine pH (5-8) 7.0 Ur Specific [place] (1.005-1.025) 1.020 Urine Protein (Negative) mg/dL Negative Urine Ketones (Negative) mg/dL Negative Urine Blood (Negative) Negative Urine Nitrite (Negative) Negative Urine Bilirubin (Negative) Negative Urine Urobilinogen (Up TO 0.2) EU/dL 1.0 H Ur Leukocyte Esterase (Negative) Negative Urine Glucose (Negative) mg/dL Negative Urine Legionella Ag (Negative) Range/Units 11/18/21 11/19/21 08:32 06:50 WBC (4.4-10.8) 10^3/uL RBC (4.36-5.78) 10^6/uL Hgb (13.5-17.5) g/dL Hct (40.0-50.0) % MCV (80-95) fL MCH (27.0-33.0) pg MCHC (32.0-36.0) % RDW (11.8-14.1) % Plt Count (130-400) 10^3/uL MPV (8.0-11.0) fL Immature Gran % Neutrophils % Band Neutrophils % Lymphocytes % Atypical Lymphs % Monocytes % Eosinophils % Basophils % Nucleated RBC % % Absolute Neutrophils (1.2-6.7) 10^3/uL Absolute Lymphocytes (1.2-3.4) 10^3/uL Absolute Monocytes (0.1-0.8) 10^3/uL Absolute Eosinophils (0.0-0.7) 10^3/uL Absolute Basophils (0.0-0.2) 10^3/uL RBC Morphology VBG Lactate (0.6-1.4) mmol/L 1.5 H Sodium (136-145) mmol/L Potassium (3.5-5.1) mmol/L Chloride (98-107) mmol/L Carbon Dioxide (21.0-32.0) mmol/L Anion Gap (3-11) mmol/L BUN (7-18) mg/dL Creatinine (0.70-1.30) mg/dL Estimated GFR/1.73 m2 (mL/min/1.73m2) Glucose (74-106) mg/dL Hemoglobin A1c (<5.7) % Calcium (8.5-10.1) mg/dL Magnesium (1.8-2.4) mg/dL Total Bilirubin (0.2-1.0) mg/dL AST (15-37) U/L ALT (16-63) U/L Alkaline Phosphatase (46-116) U/L Troponin I (<or=60) ng/L C-Reactive Protein (0.0-0.3) mg/dL NT-Pro-B Natriuret Pep (<300) pg/mL Total Protein (6.4-8.2) g/dL Albumin (3.4-5.0) g/dL Procalcitonin ng/mL Urine Color (Yellow) Urine Clarity (Clear) Urine pH (5-8) Ur Specific [place] (1.005-1.025) Urine Protein (Negative) mg/dL Urine Ketones (Negative) mg/dL Urine Blood (Negative) Urine Nitrite (Negative) Urine Bilirubin (Negative) Urine Urobilinogen (Up TO 0.2) EU/dL Ur Leukocyte Esterase (Negative) Urine Glucose (Negative) mg/dL Urine Legionella Ag (Negative) Negative
--- NOTE | 2021-11-19 09:54 | DSE_ITS ---
Date of service: 11/19/21 Time of Service: 09:55 DS: Diagnosis Discharge Diagnosis (1) Asthma exacerbation: Status: Acute (2) Hyperglycemia: Status: Acute (3) Leukocytosis: Status: Acute (4) Lactic acidosis: Status: Acute (5) Pneumonia: Status: Acute (6) Respiratory failure with hypoxia: Status: Acute Discharge Plan Disposition Patient Disposition: HOME Condition: Good Discharge Details Reason For Visit: Asthma Admit Date/Time: 11/16/21 22:40 Admit Provider: Jhonatan Jarquin Attending Provider: Jhonatan Jarquin [facility] Course: 56 male non-smoker, h/o asthma. Seen at [facility] one week [employer] for asthma exacerbation, reports he was sent home on inhalers. Returned to [facility] with persistent and worsening SOB along with dry cough. Stated he had a fever also tonight but does not know details. Did further report a heavy feeling on chest for the past two weeks consistently (notably he has h/o CAD/[place] and states this CP is what he gets with his asthma, and is different than that with coronary insufficiency)). In ER findings of note for wheezing, BPs initially low 100s, d ipping into 80s-90s (single reading 57/sys), white count 11K, trop marginal at 0.03 (ULN 0.02); lactate 2.0 (ULN 1.9), EKG no ischemic changes with RBBB; negative CXR. COVID negative. He stated he has probably used his rescue albuterol inhaler only appx 5 times in the last several years. He had never been hospitalized for asthma. Patient given IVF, steroids, updrafts, Rocephin and Zithromax. No beds available and he was accepted in transfer here. Patient stated he felt much improved, though not back to baseline upon arrival at [facility]. No CP at time of admission. Pulmonary medicine consulted. Symbicort initiated. The day following admission he was weaned from supplemental O2 and he felt less dyspnea on exertion. He was converted to oral prednisone. He will f/u with Dr Arias. PCP f/u in 1-2 weeks. Levaquin 750mg po daily for 5 days for pneumonia treatment Prednisone 40mg daily for 3 days. Home Meds and New Rx's Prescriptions: New prednisone 20 mg Tablet 40 mg PO DAILY 3 Days Qty: 6 RF: 0 budesonide-formoterol [Symbicort] 160-4.5 mcg/actuation Hfa Aerosol Inhaler 2 puff inhalation 0600,1800 Qty: 1 RF: 0 levofloxacin 750 mg tablet 750 mg PO DAILY Qty: 5 RF: 0 Continued atorvastatin 40 mg Tablet 40 mg PO QHS RF: 0 ropinirole 0.25 mg Tablet 0.375 mg PO QHS RF: 0 lisinopril 10 mg Tablet 10 mg PO HS RF: 0 omeprazole 20 mg Capsule,Delayed Release(Dr/Ec) 20 mg PO HS RF: 0 aspirin 81 mg Tablet 81 mg PO DAILY RF: 0 albuterol 90 mcg/actuation Aerosol 90 mcg INHALATION PRN PRNRF: 0 oxycodone 5 mg Tablet 5 mg PO BID PRNRF: 0 ferrous sulfate 325 mg (65 mg iron) Capsule, Extended Release 325 mg PO DAILY RF: 0 metoprolol tartrate 25 mg Tablet 12.5 mg PO BID RF: 0 Discharge Instructions Instructions: Bacterial Pneumonia (DC) Stand Alone Forms: Nursing Discharge Form Referrals: Ambrocio Bower [Primary Care Provider] - (Called and left a message, the office will call you with follow up appointment.) Activity:: Activity as Tolerated Equipment/Supplies:: No Equipment Needed Diet:: Resume home diet Discharge Orders Discharge Orders: Discharge Order (Routine); Ordered 11/19/21 Ordered By: Abhijit Haywood DS: Summary Time Spent with Patient providing and/or coordinating discharge services: Greater than 30 minutes Status at Discharge Functional status at discharge: independent ambulation Overall status at discharge: patient is progressing back to baseline Mental Status: mental status grossly normal Speech and Movement: speech and movement normal Mood: congruent mood Affect: normal affect Exam Psych Mental Status: mental status grossly normal Speech and Movement: speech and movement normal Mood: congruent mood Affect: normal affect DS: Data Vitals/I&O Vitals and I&O: Vital Signs Temperature 37.3 C 11/19/21 07:22 Temperature Source Tympanic 11/19/21 07:22 Pulse 64 11/19/21 07:22 Pulse Rhythm Regular 11/19/21 08:50 Pulse 79 11/17/21 13:00 Respiratory Rate 18 11/19/21 07:22 Respiratory Effort 11/19/21 08:50 Respiratory Depth Normal 11/19/21 08:50 Respiratory Pattern Normal 11/19/21 08:50 Blood Pressure 126/85 11/19/21 07:22 Blood Pressure Mean 77 11/17/21 12:09 Blood Pressure Position Sitting 11/17/21 12:00 Pulse Oximetry 96 11/19/21 07:22 Oxygen Delivery Method Room Air 11/19/21 07:22 Oxygen Flow Rate 0 11/19/21 07:22 Fraction of Inspired Oxygen (FIO2) 25 11/17/21 13:04 Pain Level 7 11/19/21 07:22 Intake & Output 11/18/21 11/18/21 11/19/21 11:59 23:59 11:59 Intake Total 120 / 410 290 / 410 Output Total 2200 / 3900 1700 / 3900 1000 / 1000 Balance -2080 / -3490 -1410 / -3490 -1000 / -1000 Weight 116.3 kg Intake: IV 50 / 50 Oral 120 / 360 240 / 360 Output: Urine 2200 / 3900 1700 / 3900 1000 / 1000 Other: Urine Color Yellow Yellow Light Shannan Urine Appearance Clear Clear Clear Urine Odor Normal Normal Normal Comment pt had 600 in urinal and 900 in toliet Voiding Methods Toilet Toilet Toilet Data Completed and Pending Labs on day of discharge: Labs from last 24 hours 11/19/21 11/18/21 06:50 08:32 VBG Lactate 1.5 H Urine Legionella Ag Negative Preliminary micro results at discharge 11/17/21 12:30 Sputum Culture - Preliminary Sputum Normal Shraddha PFSH All Active Problems Pneumonia (Acute) Respiratory failure with hypoxia (Acute) Lactic acidosis (Acute) Leukocytosis (Acute) Hyperglycemia (Acute) Asthma exacerbation (Acute) Medical History Asthma Social History Smoking/Tobacco Use Status: Never Smoking risk assessment performed?: Yes
--- NOTE | 2021-11-19 10:47 | PDOC.CMDIS ---
- If Service Date Differs Date of service: 11/19/21 Time of Service: 10:47 LACE Index Scoring Tool - Questions: Length of Stay (in days): 3 Acuity (Admit via E.D.?): No Comorbidities: Chronic Pulmonary Disease E.D. Visits: 0 - Answers: Total Score: 5 Risk of Readmission: Low Risk Care Management Discharge Reason for Hospitalization: Direct admit from [facility] Discharge Plan: Discharge home with no additional services via private vehicle with family. Follow up with his PCP and plan of care as prescribed. Patient/Family Education Needs: Review discharge instructions, medications and plan to follow up with community providers. ask me three.
[2021-11-19 11:17] VITALS: PULSE 71
--- NOTE | 2021-11-19 11:53 | DIABASSESS_ITS ---
Date of service: 11/19/21 Time of Service: 11:53 Diabetes Note NOTE: Provided introductory information regarding diabetes education- carbohydrate counting, label reading, meal planning, and recipes. Provided my contact number for Mr. Leos and encouraged him to call me so we could set up an appointment as an outpatient. He verbalized that he will review the information with his girlfriend. When they are all well in his house, he stated he will call me to make an appointment. He also stated that he is highly motivated to make lifestyle changes to manage his diabetes. Time Spent in Nutritional Counseling and Treatment: 15
[2021-11-19 14:49] LABS: Streptococcus Pneumoniae Ag, U Negative (Negative)
== END 2021-11-19 12:08 | disposition home or self-care (01) | DRG 193 ==
LOC: ICU 11-17 09:56 → MS 11-17 13:55
PROVIDERS: Family Medicine; Internal Medicine; Student in an Organized Health Care Education/Training Program; Admitting Provider General Practice; PCP Family Medicine; Visit Provider General Practice
DX: J18.9 Pneumonia, unspecified organism (principal); J96.01 Acute respiratory failure with hypoxia; J45.51 Severe persistent asthma with (acute) exacerbation; E87.2 Acidosis; Z68.41 Body mass index [BMI] 40.0-44.9, adult; I25.10 Atherosclerotic heart disease of native coronary artery without angina pectoris; I25.2 Old myocardial infarction; I45.10 Unspecified right bundle-branch block; R73.9 Hyperglycemia, unspecified; I10 Essential (primary) hypertension; G47.33 Obstructive sleep apnea (adult) (pediatric); K21.9 Gastro-esophageal reflux disease without esophagitis; E66.01 Morbid (severe) obesity due to excess calories
CPT/HCPCS: 36415; 71275; 80048; 80053; 84145; 87449; J1650; 71045; 81003; 83036; 83605; 83735; 83880; 84484; 85025; 86140; 87070; 87205; 87899; 94660; 94664; 99222; 99232; 99233; 99239; J0696; J3490; J7512; J7613; J7620